=== PATIENT | female | born 1940 | race Caucasian/White ===

== ENCOUNTER → 2018-01-27 | Outpatient (CLI) | payer MEDICARE, OTHER ==
[~2018-01-27] MED LIST: ASPI-1471 PO; ASPI81TA94 PO; CA C1TAB9 PO; LISI20TA29 PO; META-1 PO; META800T18 PO; MULT-865 PO; NAPR220C12 PO; ROSU20TA23 PO; TRIA-19 PO; TRIA1CAP85 PO
--- NOTE | 2018-01-27 14:58 | RADIOLOGY IMAGING REPORT ---
[place] [facility] [place]: Amy Dallas : 1940 MR: [id number] V: [id number] EXAM DATE: ORDERING PHYSICIAN: MISTY STOLL TECHNOLOGIST: Location: [facility] Patient: Amy Dallas : 1940 Visit/Account:[id number] Date of Sevice: 01/27/2018 DEXA Scan Clinical history: Screening. Comparison: None available. LUMBAR SPINE: The bone mineral density (BMD) measured from L1-L4 correlates with a Z-score 0.9 and a T-score of -0. 5 which is Normal as defined by the World Health Organization. The corresponding risk of fracture in the lumbar spine is 1X compared with a young adult reference population. HIP: Bone mineral density (BMD) measured in the Left total hip region correlates with a Z-score -1.7 and a T-score of -3.2 which is osteoporosis as defined by the World Health Organization. The correspondin g risk of fracture in the hip is 8x compared with a young adult reference population. Bone mineral density (BMD) measured in the Femoral Neck region measures 0.6 g/cm2. Impression: 1. Lumbar spine: Normal. 2. Left total Hip: Osteoporosis. 3. Femoral Neck: Bone Mineral Density is 0.6 g/cm2 The next DEXA scan of this patient should include the following sites: L1-L4 and the left hip. FRAX? WHO Fracture Risk Assessment Tool link: <http://www.shef.ac.uk/FRAX/tool.jsp?locationValue=9> PLEASE NOTE: 1) The World Health Organization defines low BMD as follows: T-score Normal > -1 Osteopenia < -1 and > -2.5 Osteoporosis < -2.5 without fractures Established osteoporosis < -2.5 with fractures 2) In general, you may wish to consider: Diagnosis Treatment Follow-up DEXA Normal BMD Prevention 2-3 years Osteopenia Prevention/therapy 1-2 years Osteoporosis Therapy Yearly 3) Fracture risk estimated from the T-score is more accurate for vertebral fractures (often spontane ous) than for hip fractures. Report Dictated By: Derick Schneider DO at 01/27/2018 2:52 PM Report E-Signed By: Derick Schneider DO at 01/27/2018 2:54 PM WSN:[email or web address]
== END ==
LOC: RAD 03:43
PROVIDERS: ATTEND Emergency Medicine
DX: Z13.820 Encounter for screening for osteoporosis (principal); M81.0 Age-related osteoporosis without current pathological fracture
CPT/HCPCS: 77080

== ENCOUNTER → 2018-02-06 | Outpatient (CLI) | payer MEDICARE, OTHER ==
[~2018-02-06] MED LIST changes: +CHOL10005 PO
== END ==
LOC: LAB 09:17
PROVIDERS: ATTEND Emergency Medicine
DX: M81.0 Age-related osteoporosis without current pathological fracture (principal); I10 Essential (primary) hypertension
CPT/HCPCS: 36415; 82306; 82310; 82374; 82435; 82565; 82947; 83970; 84132; 84295; 84520

== ENCOUNTER → 2018-05-09 | Outpatient (CLI) | payer MEDICARE, OTHER ==
[~2018-05-09] MED LIST changes: +DEN60I SUBQ
== END ==
LOC: LAB 14:25
PROVIDERS: ATTEND Emergency Medicine
DX: E55.9 Vitamin D deficiency, unspecified (principal)
CPT/HCPCS: 36415; 82306

== ENCOUNTER → 2018-05-28 | Outpatient (CLI) | payer MEDICARE, OTHER ==
--- NOTE | 2018-05-28 17:13 | RADIOLOGY IMAGING REPORT ---
FACILITY: [facility] PATIENT NAME: ASHLYN TREVIÑO : [id number] MR: [id number] V: [id number] EXAM DATE: ORDERING PHYSICIAN: MISTY STOLL TECHNOLOGIST: Mady Timmons PROCEDURE:BILATERAL DIGITAL SCREENING MAMMOGRAM WITH CAD ASSISTED INTERPRETATION & 3D TOMOSYNTHESIS COMPARISON:Prior mammograms 02/21/17, 07/08/13 INDICATIONS:SCREENING FINDINGS: Small amount of fibroglandular tissue is seen throughout the breasts. The parenchymal pattern has remained stable allowing for difference in mammographic technique & patient positioning. There is no evidence of malignant appearing mass, malignant appearing calcifications or other secondary sign of malignancy in either breast. DIAGNOSTIC CATEGORY 1--NEGATIVE. RECOMMENDATIONS: ROUTINE MAMMOGRAM AND CLINICAL EVALUATION. IMPRESSION: BIRADS 1: Negative. No significant abnormality is seen. Dictated by: Monica Zamora M.D. on 05/28/2018 at 15:25 Transcribed by: MIRIAM on 05/28/2018 at 15:33 Approved by: Monica Zamora M.D. on 05/28/2018 at 17:12 [facility]
== END ==
LOC: MAMO 02:09
PROVIDERS: ATTEND Emergency Medicine
DX: Z12.31 Encounter for screening mammogram for malignant neoplasm of breast (principal)
CPT/HCPCS: 77063; 77067

== ENCOUNTER → 2018-06-30 | Outpatient (CLI) | payer MEDICARE, OTHER ==
[~2018-06-30] MED LIST changes: +CYA1000 PO; +MELO-205 PO; +MELO-207 PO
== END ==
LOC: LAB 09:09
PROVIDERS: ATTEND Emergency Medicine
DX: G62.9 Polyneuropathy, unspecified (principal)
CPT/HCPCS: 36415; 82607

== ENCOUNTER → 2018-10-01 | Outpatient (CLI) | payer MEDICARE, OTHER | LOC: LAB 15:38 | PROVIDERS: ATTEND Emergency Medicine | DX: E53.8 Deficiency of other specified B group vitamins (principal) | CPT/HCPCS: 36415; 82607 ==